=== PATIENT | female | born 1930 | race Caucasian/White ===

== ENCOUNTER 2016-12-31 08:55 | Emergency (ER) | payer MEDICARE ==
[2016-12-31] MEDS ORDERED: Acetaminophen 500 MG TAB ONE (09:29)
[2016-12-31 11:06] LABS: #Eosinphils 0.1 thou/uL (0.0-0.7); #Monocytes 0.7 thou/uL (0.11-0.59); #Neutrophils 12.9 thou/uL (1.40-6.50); %Basophils 0.1 % (0.0-1.0); %Eosinophils 0.4 % (0.0-10.0); %Lymphocytes 6.9 % (21.0-51.0); %Monocytes 4.5 % (0.0-10.0); Hematocrit 42.6 % (36.0-47.0); Mean Platelet Volume 7.2 fL (7.4-10.4); Red Blood Cell (RBC) Count 4.28 mill/uL (4.20-5.40); White Blood Cell (WBC) Count 14.6 thou/uL (4.8-10.8)
--- NOTE | 2016-12-31 11:07 | CT ---
CT HEAD: HISTORY: Trauma. Loss of consciousness. TECHNIQUE: Noncontrast enhanced CT images of the brain are obtained. FINDINGS: Images demonstrate a large left frontal scalp hematoma, as well as a large periorbital hematoma. Th ere is diffuse cortical atrophy and deep white matter ischemic changes seen in the brain. No eviden ce of acute intracranial pathology is noted. No evidence of subdural or epidural hematoma is seen. Please see accompanying facial CT dictation. IMPRESSION: Large left frontal scalp hematoma. POS: [facility]
--- NOTE | 2016-12-31 11:11 | CT ---
CT FACIAL BONES: HISTORY: Trauma. TECHNIQUE: Axial images are obtained with coronal and sagittal reconstructions. FINDINGS: CT images of the facial bones demonstrate a large left periorbital and frontal scalp hematoma. Ther e is a small amount of fluid in the left maxillary sinus. There is a minimally displaced orbital fl oor fracture without evidence of entrapment of the rectus muscles or significant periorbital fat thr ough the fracture defect. The medial and lateral orbital bowman area intact. Submucosal thickening is seen in the left sphenoid sinus. No definite evidence of a nasal fracture is seen. IMPRESSION: Left inferior orbital wall fracture. POS: [facility]
[2016-12-31 11:12] LABS: PTT 25.1 SEC (22.9-36.1)
--- NOTE | 2016-12-31 11:15 | CT ---
CT CERVICAL SPINE: HISTORY: Left eye swelling. Swelling to back of head. FINDINGS: There is disk space height loss with anterior and posterior osteophytes at C3-C4, C4-C5, C5-C6, and C6-C7. This is compatible with changes of spondylosis. No evidence of acute cervical spine fractur e is seen. The facets are unremarkable and in normal alignment. IMPRESSION: 1. Multilevel mid and lower cervical changes of spondylosis. 2. No acute evidence of cervical spine pathology is seen. 3. Noted is a lobular, calcified density in the right thyroid lobe. This may represent a possible right thyroid mass. Correlate with elective sonography to further evaluate the right thyroid. CODE T POS: [facility]
[2016-12-31 11:59] LABS: Troponin I 0.132 ng/mL (< 0.028)
[2016-12-31 12:01] LABS: ALT (SGPT) 10 U/L (8-55); AST (SGOT) 24 U/L (5-34); Alkaline Phosphatase 53 U/L (40-150); Anion Gap 13 mmol/L (10-20); BUN (Urea Nitrogen) 12 mg/dL (9.8-20.1); Bilirubin, Total 0.8 mg/dL (0.2-1.2); CK (CPK) 332 U/L (29-168); Calc. Creatinine Clearance 0 mL/min (70-130); Calcium 9.3 mg/dL (7.8-10.44); Carbon Dioxide 26 mmol/L (23-31); Chloride 108 mmol/L (98-107); Estimated GFR-MDRD 75; Globulin 2.4 g/dL (2.4-3.5); Lipase 26 U/L (8-78)
[2016-12-31] MEDS ORDERED: Bacitracin Zinc 1 Packet ONE (12:05)
--- NOTE | 2016-12-31 13:29 | RAD ---
FOUR VIEWS RIGHT ELBOW: HISTORY: Fall. TECHNIQUE: AP, lateral, and both oblique views of the right elbow are obtained. FINDINGS: Four views of the right elbow demonstrate no evidence of right elbow fractures, subluxations, or bon y lesions. IMPRESSION: Normal four views right elbow. POS: [facility]
--- NOTE | 2016-12-31 13:32 | RAD ---
PORTABLE AP CHEST X-RAY: 12/31/2016 HISTORY: The patient fell and is on blood thinners. Laceration to eye and swelling to back of head. Possibl e loss of consciousness. The patient complains of neck and back pain. COMPARISON: 02/13/2011 FINDINGS: The cardiac silhouette is magnified by projection but is stable in size compared to the prior exam. The pulmonary vasculature is within normal limits. There is minimal atelectasis at the right lung base. The lungs are otherwise clear. No pneumothorax or pleural effusion is appreciated. 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 [place] screws again overly the right humeral head. There is os teopenia. No obvious fracture is appreciated on this exam. IMPRESSION: Stable chest without evidence of an acute cardiopulmonary process. POS: [facility]
--- NOTE | 2016-12-31 13:33 | RAD ---
FOUR VIEWS LEFT KNEE: HISTORY: Fall with left knee pain. FINDINGS: AP, lateral, and both oblique views of the left knee are obtained. The left knee is unremarkable. No evidence of left knee fractures, subluxations, or bony lesions se en. IMPRESSION: Normal four views left knee. POS: [facility]
--- NOTE | 2016-12-31 13:37 | RAD ---
THREE VIEWS LEFT FOOT: HISTORY: Fall with pain. FINDINGS: AP, lateral, and oblique views of the left foot are obtained. Three views of the left foot demonstrate an area of radiolucency seen in the mid portion, distal pha lanx, first digit, left foot. This is compatible with a distal phalangeal first digit fracture. Th e rest of the left foot is unremarkable. IMPRESSION: Comminuted intraarticular fracture involving the distal phalanx, first digit, left foot. The fractu re extends into the interphalangeal joint. POS: [facility]
== END 2016-12-31 12:54 | disposition home or self-care (01) ==
LOC: ERS 08:55
DX: S02.32XA Fracture of orbital floor, left side, initial encounter for closed fracture (principal); S80.02XA Contusion of left knee, initial encounter; S90.112A Contusion of left great toe without damage to nail, initial encounter; W01.0XXA Fall on same level from slipping, tripping and stumbling without subsequent striking against object, initial encounter; Y92.009 Unspecified place in unspecified non-institutional (private) residence as the place of occurrence of the external cause
CPT/HCPCS: 36415; 70450; 70486; 71010; 72125; 80053; 82550; 82553; 83690; 83735; 84484; 85025; 85610; 85730; 93005